=== PATIENT | female | born 1990 | race Caucasian/White ===

== ENCOUNTER 2017-02-28 20:38 | Emergency (ER) | payer OTHER ==
[2017-02-28] MEDS ORDERED: NS 1,000 ML IV ONE (20:51)
[2017-02-28 20:52] VITALS: TEMP 98.4
[2017-02-28 20:56] LABS: % IMMATURE GRANULYOCYTES 0.2 % (0.0-1.1); ABSOLUTE IMMATURE GRANULOCYTES 0.02 10^3/uL (0.00-0.10); ADD DIFF? NO; ADD MORPH? NO; ADD SCAN? NO; ATYPICAL LYMPHOCYTE FLAG 30 (0-99); FRAGMENT RBC FLAG 0 (0-99); HEMATOCRIT 39.1 % (38.0-47.0); HEMOGLOBIN 13.2 g/dL (12.6-16.3); LEFT SHIFT FLG 0 (0-99); LIPEMIA HEMOLYSIS FLAG 90 (0-99); MEAN CELL HEMOGLOBIN 29.6 pg (27.9-34.1); MEAN CELL HEMOGLOBIN CONCENTR. 33.8 g/dL (32.4-36.7); MEAN CELL VOLUME 87.7 fL (81.5-99.8); MEAN PLATELET VOLUME 8.9 fL (8.7-11.7); PLATELET CLUMPS FLAG 20 (0-99); PLATELET COUNT 376 10^3/uL (150-400); RED BLOOD CELL COUNT 4.46 10^6/uL (4.18-5.33); RED CELL DISTRIBUTION WIDTH 11.6 % (11.5-15.2)
--- NOTE | 2017-02-28 21:05 | CPEKG ---
Heart Rate: 70 RR Interval: 857 P-R Interval: 180 QRSD Interval: 80 QT Interval: 420 QTC Interval: 454 P [place]: 38 QRS [place]: 44 T [place]: -23 EKG Severity - BORDERLINE ECG - EKG Impression: SINUS RHYTHM EKG Impression: BORDERLINE T ABNORMALITIES, INFERIOR LEADS Electronically Signed By: Kane Rodríguez 28-Feb-2017 22:41:29
[2017-02-28 21:09] LABS: ANION GAP 12 mEq/L (8-16); CALCIUM 9.4 mg/dL (8.5-10.4); CARBON DIOXIDE 24 mEq/l (22-31); CHLORIDE 102 mEq/L (97-110); CREATININE 0.7 mg/dL (0.6-1.0); GLOMERULAR FILTRATION RATE > 60; GLUCOSE 114 mg/dL (70-100); POTASSIUM 3.5 mEq/L (3.5-5.2); SODIUM 138 mEq/L (134-144)
[2017-02-28 22:58] LABS: COLOR PALE YELLOW; LEUKOCYTE ESTERASE,URINE NEGATIVE (NEGATIVE); NITRITE,URINE NEGATIVE (NEGATIVE)
[2017-02-28 23:02] LABS: MUCUS TRACE /lpf (NONE-1+)
--- NOTE | 2017-02-28 23:08 | EDPHY ---
H & P Stated Complaint: seizure HPI/ROS: Chief complaint: Seizure History of present illness: This is a 26-year-old female brought to the emergency department by EMS after having an apparent seizure. Patient was at dinner when she started to feel unwell. She apparently had a 20 second tonic- clonic type seizure witnessed by her boyfriend. EMS was summoned. It is not clear if patient clearly had a postictal state. Patient reports she had a similar episode previously and was told it was secondary to volume depletion. EMS does report her systolic blood pressure was 70 systolic on their arrival. Patient states she has never actually seen a neurologist or had advanced studies such as an EEG to ascertain if she is having seizures. Patient has no specific complaints in the emergency room. Review of systems: A 10 point review of systems was obtained and other than described above was negative - Medical/Surgical History Hx Asthma: No Hx Chronic Respiratory Disease: No Hx Diabetes: No Hx Cardiac Disease: No Hx Renal Disease: No Hx Cirrhosis: No Hx Alcoholism: No Hx HIV/AIDS: No Hx Splenectomy or Spleen Trauma: No Other PMH: denies - Social History Smoking Status: Never smoked - Physical Exam Exam: General Appearance: Alert, nontoxic. Eyes: Pupils equal and round no pallor or injection. ENT, Mouth: Mucous membranes moist. No tongue biting. Respiratory: There are no retractions, lungs are clear to auscultation. Cardiovascular: Regular rate and rhythm. Gastrointestinal: Abdomen is soft and non tender, no masses, bowel sounds normal. Neurological: Alert and oriented x4. Cranial nerves 2-12 grossly intact. Strength and sensation intact and symmetrical. Patient ambulating without difficulty. Skin: Warm and dry, no rashes. Musculoskeletal: Neck is supple non tender. Extremities are symmetrical, full range of motion. Psychiatric: Patient is oriented X 3, there is no agitation. Constitutional: Initial Vital Signs Temperature (C) 36.9 C 02/28/17 20:49 Heart Rate 74 02/28/17 20:49 Respiratory Rate 16 02/28/17 20:49 Blood Pressure 105/69 02/28/17 20:49 O2 Sat (%) 98 02/28/17 20:49 O2 Delivery Mode Room Air Allergies/Adverse Reactions: No Known Allergies Allergy (Unverified 02/28/17 20:48) Home Medications: Medication Instructions Recorded Celexa 02/28/17 KLONOPIN 02/28/17 Medical Decision Making ED Course/Re-evaluation: Patient is discussed with my secondary supervising physician Dr. Kane Rodríguez. Patient presents to the emergency department with EMS for reported seizure. On presentation she is nontoxic. Afebrile and vital signs are stable. Physical exam is unremarkable including a nonfocal neurologic exam. Blood studies, EKG and CT scan of the head are negative. It is not clear if this patient truly had a seizure or a syncopal episode. She was hypotensive according to EMS. I have discussed with her it is not clear as to the cause of her symptoms. She has been given seizure precautions. She is asked to follow up with a primary care doctor and a neurologist for further evaluation and care of her symptoms. I pressed upon her the importance of follow up given this is her 2nd episode. Again home care is discussed. Strict return precautions are given. Patient voiced understanding and agreement with plan. Differential Diagnosis: Included but not limited to seizures of multiple etiologies, syncope of multiple etiologies - Data Points Laboratory Results: Laboratory Results 02/28/17 20:42 02/28/17 20:42 Medications Given: Discontinued Medications Sodium Chloride (Ns) 1,000 mls @ 0 mls/hr IV ONCE ONE PRN Reason: Wide Open Stop: 02/28/17 20:52 Last Admin: 02/28/17 20:52 Dose: 1,000 mls Departure - Departure Disposition: Home, Routine, Self-Care Clinical Impression: Syncope Qualifiers: Syncope type: unspecified Qualified Code(s): R55 - Syncope and collapse Condition: Good Instructions: Syncope (ED), New-Onset Seizure in Adults (ED) Additional Instructions: Follow-up with a primary care doctor and a neurologist for continued evaluation and care Contain seizure precautions, do not drive, swim or bathe or perform other activities where if you had a potential seizure it could result in injury or to yourself or someone else If symptoms worsen or new symptoms develop return to the emergency department Referrals: NONE *PRIMARY CARE P,. [Primary Care Provider] - As per Instructions Pam Little MD [Medical Doctor] - As per Instructions Quinn Saldivar MD [Medical Doctor] - As per Instructions
[2017-02-28 23:21] VITALS: BP 91/65; PULSE 60; RESP 14; O2SAT 95
== END 2017-02-28 23:21 | disposition home or self-care (01) ==
DX: R55 Syncope and collapse (principal)